=== PATIENT | female | born 1995 | race Caucasian/White ===

== ENCOUNTER 2022-07-03 11:55 | Emergency (ER) | payer OTHER ==
[~2022-07-03] VITALS: Ht 162.6 cm; Wt 68.2 kg
[2022-07-03] MEDS ORDERED: TRAM-559 PO (12:49)
[2022-07-03] MEDS ORDERED: HYDR-4527 PO (12:49)
[2022-07-03] MEDS ORDERED: CYCL-448 PO (12:49)
[2022-07-03] MEDS ORDERED: METHOCARBAMOL 500 MG TABLET PO ONE (13:00)
[2022-07-03] MEDS ORDERED: OxyCODONE HCL/ACETAMINOPHEN 5-325 MG TABLET PO ONE (13:00)
[2022-07-03] MEDS ORDERED: KETOROLAC TROMETHAMINE 60 MG/2 ML VIAL IM ONE (13:00)
[2022-07-03 14:05] VITALS: BP 136/72
[2022-07-03] MEDS ORDERED: PERCT PO (14:21)
[2022-07-03] MEDS ORDERED: METH-659 PO (14:21)
== END 2022-07-03 14:54 | disposition home or self-care (01) ==
LOC: EMS 12:00
DX: S39.012A Strain of muscle, fascia and tendon of lower back, initial encounter (principal); F41.9 Anxiety disorder, unspecified; F32.A Depression, unspecified; Z88.8 Allergy status to other drugs, medicaments and biological substances; X58.XXXA Exposure to other specified factors, initial encounter; Y93.89 Activity, other specified; Y92.89 Other specified places as the place of occurrence of the external cause; Y99.8 Other external cause status
CPT/HCPCS: 99283; 96372; J1885